=== PATIENT | female | born 1970 | race Two or more races ===

== ENCOUNTER 2019-06-14 15:48 | Emergency (ER) | payer BC, OTHER ==
[~2019-06-14] VITALS: Ht 157.5 cm; Wt 72.6 kg
[2019-06-14] MEDS: SODIUM CHLORIDE 0.9% 500 ML IV ONE (16:38)
[2019-06-14 16:39] LABS: Basophils # (auto) 0 uL; Basophils % (auto) 0.4 % (0.0-2.0); Eosinophils # (auto) 0 uL; Eosinophils % (auto) 0.4 % (0.0-7.0); Hematocrit 36.1 % (36.0-46.0); Hemoglobin 12.7 g/dL (12.2-16.2); Lymphocytes # (auto) 1.4 uL; Lymphocytes % (auto) 13.1 % (10.0-50.0); Mean Corpuscular Hemoglobin 32.4 pg (28.0-32.0); Mean Corpuscular Hgb Conc. 35.2 g/dL (32.0-36.0); Monocytes # (auto) 0.6 uL; Monocytes % (auto) 5.5 % (0.0-12.0); Neutrophils # (auto) 8.7 uL; Neutrophils % (auto) 80.6 % (37.0-80.0); Platelet Count (auto) 267 10^3/uL (140-450); Red Blood Cells 3.92 10^6/uL (4.0-5.20); Red Cell Distribution Width 14.8 % (11.8-14.3); White Blood Cell 10.8 10^3/uL (4.4-10.8)
[2019-06-14 16:55] LABS: Albumin 2.8 g/dL (3.4-5.0); Calcium 8.3 mg/dL (8.5-10.1); Potassium 3.5 mmol/L (3.5-5.1)
[2019-06-14 16:58] LABS: BUN/Creatinine Ratio 19.1; Bilirubin, Total 0.3 mg/dL (0.2-1.0); Total Protein 6.6 g/dL (6.4-8.2)
[2019-06-14] MEDS: SODIUM CHLORIDE 0.9% 1,000 ML IV ONE ×2 (17:25→21:17)
[2019-06-14] MEDS: ONDANSETRON HCL 4 MG/2 ML VIAL IV ONE (17:25)
[2019-06-14 20:00] VITALS: BP 107/60
[2019-06-14 21:42] LABS: Urine Bacteria FEW /hpf (None Seen); Urine Blood Negative /uL (Negative); Urine Specific Gravity 1.008 (1.001-1.035); Urine WBC 3 /hpf (0 - 5)
== END 2019-06-14 22:18 | disposition home or self-care (01) ==
LOC: ER 15:48 → EDBD 15:48 → ER 22:18
DX: O21.1 Hyperemesis gravidarum with metabolic disturbance (principal); E46 Unspecified protein-calorie malnutrition; Z3A.11 11 weeks gestation of pregnancy
CPT/HCPCS: 36415; 76801; 80053; 81001; 84702; 85025; 96361; 96374; 99284; J2405; J7030; J7040